=== PATIENT | male | born 1950 | race Caucasian/White ===

== ENCOUNTER 2017-04-03 08:08 | Emergency (ER) | payer OTHER ==
[~2017-04-03] VITALS: Ht 180.3 cm; Wt 102.1 kg
[2017-04-03 08:20] VITALS: BP_SYST 123
--- NOTE | 2017-04-03 08:23 | NUR ---
Pt placed to ER waiting room in stable condition.
--- NOTE | 2017-04-03 09:07 | NUR ---
Pt complains of having congestion in chest, sore throat, and cough since last night. Pt states he felt like he had a fever on and off until this morning. Pt states he has a little bit of nausea but denies vomiting. Pt also denies diarrhea. No other injuries/complaints per patient or noted.
--- NOTE | 2017-04-03 09:07 | NUR ---
Pt placed to [facility]. Report given to YAMILA Colón.
[2017-04-03 09:39] LABS: INFLUENZA A&B ANTIGEN SCREEN NEGATIVE FOR A & B (NEGATIVE); STREPTOCOCCUS A SCREEN (RAPID) NEGATIVE (NEGATIVE)
--- NOTE | 2017-04-03 09:40 | NUR ---
DR DENTON AT BEDSIDE FOR EVALUATION
--- NOTE | 2017-04-03 10:07 | NUR ---
Note undone in EDM - 04/03/17 at 1111 by [email or web address] Pt complains of having congestion in chest, sore throat, and cough since last night. Pt states he felt like he had a fever on and off until this morning. Pt states he has a little bit of nausea but denies vomiting. Pt also denies diarrhea. No other injuries/complaints per patient or noted.
[2017-04-03 10:09] VITALS: BP_SYST 123
--- NOTE | 2017-04-03 10:09 | NUR ---
Patient given written and verbal discharge instructions and verbalizes understanding. ER MD discussed with patient the results and treatment provided. Patient in stable condition. ID arm band removed. Rx of Zithromax, Tylenol, Proventil given. Patient educated on pain management and to follow up with PMD. Pain Scale 0. Opportunity for questions provided and answered.
== END 2017-04-03 10:09 | disposition home or self-care (01) ==
LOC: SED 08:08
DX: J40 Bronchitis, not specified as acute or chronic (principal)
CPT/HCPCS: 36415; 86403; 86710; 87081; 99284

== ENCOUNTER 2019-02-13 22:59 | Emergency (ER) | payer OTHER ==
[~2019-02-13] VITALS: Ht 180.3 cm; Wt 102.1 kg
[2019-02-13 23:08] VITALS: BP_SYST 126
--- NOTE | 2019-02-13 23:08 | NUR ---
Patient triaged and placed in waiting room. VSS and patient appears in no acute distress at this time. Accompanied by , awaiting available bed, and MD notified of need for MSE.
[2019-02-14] MEDS ORDERED: ACETAMINOPHEN 325 MG TABLET ONE (00:17)
[2019-02-14 01:00] LABS: BILIRUBIN,URINE NEGATIVE (NEGATIVE); BLOOD, URINE 3+ (NEGATIVE); CLARITY/URINE CLEAR (CLEAR); COLOR,URINE YELLOW (YELLOW); GLUCOSE,URINE NEGATIVE (NEGATIVE); KETONES,URINE NEGATIVE (NEGATIVE); LEUKOCYTE ESTERASE ,URINE TRACE (NEGATIVE); NITRITE, URINE POSITIVE (NEGATIVE); PH,URINE 5.5 (5.0-8.0); PROTEIN URINE TRACE (NEGATIVE); UROBILINOGEN,URINE 0.2 (0.2-1.0)
[2019-02-14 01:00] LABS: BASOPHILS % (AUTO) 0.4 % (0.0-2.0); HEMATOCRIT 40.6 % (36-54); HEMOGLOBIN 14.1 g/dL (14.0-18.0); LYMPHOCYTES # (AUTO) 0.7 K/uL (1.0-5.5); LYMPHOCYTES % (AUTO) 6.1 % (20.5-51.5); MEAN CORPUSCULAR HEMOGLOBIN 32 pg (27-31); MEAN CORPUSCULAR HGB CONC 35 % (32-36); MEAN CORPUSCULAR VOLUME 91 fL (79.0-98.0); MONOCYTES # (AUTO) 0.8 K/uL (0.0-1.0); MONOCYTES % (AUTO) 6.9 % (1.7-9.3); NEUTROPHILS # (AUTO) 10.4 K/uL (1.8-7.7); NEUTROPHILS % (AUTO) 86.6 % (40.0-70.0); PLATELET COUNT (AUTO) 234 K/uL (130-430); RED BLOOD CELL COUNT(AUTO) 4.45 MIL/uL (4.2-6.2); RED CELL DISTRIBUTION WIDTH 13.1 % (9.0-15.0)
[2019-02-14 01:13] LABS: CALCIUM 8.2 mg/dL (8.4-11.0); CREATININE 1.74 mg/dL (0.55-1.30); POTASSIUM 4.8 mmol/L (3.5-5.1)
[2019-02-14 01:15] LABS: BACTERIA,URINE MANY /HPF (None Seen)
[2019-02-14 01:16] LABS: MUCUS,URINE 1+ /LPF (None Seen)
[2019-02-14 01:18] LABS: ALBUMIN 3.1 g/dL (3.4-4.8); TOTAL BILIRUBIN 1.3 mg/dL (0.0-1.0)
--- NOTE | 2019-02-14 02:10 | NUR ---
Placed in room 8 . Placed on cardiac cath technician, blood pressure machine and pulse oximeter. To gown for exam. Side rails up. Report given to LINA DRISCOLL.
[2019-02-14] MEDS ORDERED: cefTRIAXone 1 GM IVPB PREMIX 50 ML IV ONE (02:45)
--- NOTE | 2019-02-14 02:45 | NUR ---
Dr. Hood bedside for Pt eval
[2019-02-14] MEDS ORDERED: ACETAMINOPHEN 325 MG TABLET PO ONE (03:00)
[2019-02-14] MEDS ORDERED: IPRATROPIUM/ALBUTEROL SULFATE 3 ML AMPUL.NEB (DUONEB) INH ONE (03:00)
--- NOTE | 2019-02-14 03:00 | NUR ---
Pt BIB family to ED C/O productive cough for 1 week ago and has been persistent. Over the past 5 days he has had a low-grade fever of 100F. Accompanied by slight runny nose, mild dizziness, anterior chest discomfort particularly with coughing, and malaise No other complaints and or injuries noted VSS no s/s of acute distress Resting on gurney rails up
--- NOTE | 2019-02-14 04:05 | NUR ---
VSS no s/s of acute distress Resting on gurney rails up
[2019-02-14] MEDS ORDERED: DOXYCYCLINE HYCLATE 100 MG CAPSULE PO ONE (05:15)
[2019-02-14 05:35] VITALS: BP_SYST 126
--- NOTE | 2019-02-14 05:35 | NUR ---
Patient given written and verbal discharge instructions and verbalizes understanding. ER MD discussed with patient the results and treatment provided. Patient in stable condition. ID arm band removed. IV catheter removed intact and dressing applied, no active bleeding. Rx of Tessalon Perles, Doxycycline, Albuterol, and Macrobid given. Patient educated on pain management and to follow up with PMD. Pain Scale 0/10 Opportunity for questions provided and answered. Medication side effect fact sheet provided.
== END 2019-02-14 05:35 | disposition home or self-care (01) ==
LOC: SED 22:59
DX: J20.9 Acute bronchitis, unspecified (principal); N39.0 Urinary tract infection, site not specified
CPT/HCPCS: 36415; 71045; 80053; 81000; 83605; 84484; 85025; 86710; 87040; 87086; 87186; 93005; 94640; 96365; 99284; J0696; J7620